=== PATIENT | female | born 1940 | race Caucasian/White ===

== ENCOUNTER 2017-10-22 18:07 | Inpatient (IN) | payer MEDICARE ==
[~2017-10-22] VITALS: Ht 162.6 cm; Wt 73.6 kg
[2017-10-22] MEDS ORDERED: LORAZEPAM INJ 2 MG/ML VIAL ONE (18:13)
[2017-10-22] MEDS ORDERED: LORAZEPAM INJ 2 MG/ML VIAL IV ONE (18:30)
[2017-10-22] MEDS ORDERED: LEVETIRACETAM (500MG) 500 MG in IV NS 0.9% 100 ML IV SCH (18:30)
[2017-10-22 18:38] LABS: BASOPHILS # (AUTO) 0.1 /CMM (0.0-0.2); BASOPHILS % (AUTO) 0.9 % (0.0-2.0); EOSINOPHILS # (AUTO) 0.3 /CMM (0.0-0.7); EOSINOPHILS % (AUTO) 3.1 % (0.0-6.0); HEMATOCRIT 40 % (33-45); HEMOGLOBIN 12.6 g/dL (11.5-14.8); LYMPHOCYTES # (AUTO) 3.6 /CMM (0.8-4.8); LYMPHOCYTES % (AUTO) 42.1 % (20.0-44.0); MEAN CORPUSCULAR HEMOGLOBIN 29 PG (26.0-33.0); MEAN CORPUSCULAR HGB CONC 32 g/dl (31.0-36.0); MEAN CORPUSCULAR VOLUME 89 fL (82-100); MONOCYTES # (AUTO) 0.7 /CMM (0.1-1.30); MONOCYTES % (AUTO) 8.4 % (2.0-12.0); NEUTROPHILS # (AUTO) 3.8 /CMM (1.8-8.9); NEUTROPHILS % (AUTO) 45.5 % (43.0-81.0); PLATELET COUNT (AUTO) 307 /CMM (150-450); RDW COEFFICIENT OF VARIATION 13.3 (11.5-15.0); RED BLOOD CELL COUNT(AUTO) 4.41 MIL/uL (4.0-5.2); WHITE BLOOD COUNT (AUTO) 8.5 K/uL (4.3-11.0)
[2017-10-22 18:54] LABS: INR 1.08 (0.87-1.13); PROTHROMBIN TIME 11.2 SECS (9.5-12.7)
[2017-10-22 18:57] LABS: ALANINE AMINOTRANSFERASE 16 U/L (12-78); ALKALINE PHOSPHATASE 69 U/L (46-116); ASPARTATE AMINOTRANSFERASE 18 U/L (15-37); BILIRUBIN,DIRECT 0.1 mg/dL (0.0-0.2); BILIRUBIN,TOTAL 0.4 mg/dL (0.2-1.0); CALCIUM, SERUM 10.1 mg/dL (8.5-10.1); CHLORIDE 106 mmol/L (98-107); POTASSIUM 3.7 mmol/L (3.5-5.1); SODIUM SERUM 145 mmol/L (136-145); TOTAL PROTEIN, SERUM 7.4 g/dL (6.4-8.2); UREA NITROGEN, BLOOD 13 mg/dL (7-18)
[2017-10-22 18:58] LABS: CARBON DIOXIDE 18 mmol/L (21-32); GLUCOSE 131 mg/dL (74-106)
[2017-10-22] MEDS ORDERED: ASCO250T5 PO (19:15)
[2017-10-22] MEDS ORDERED: FERR-58 PO (19:15)
[2017-10-22] MEDS ORDERED: HYDR-548 PO (19:15)
[2017-10-22] MEDS ORDERED: METO-356 PO (19:15)
[2017-10-22] MEDS ORDERED: SENN-167 PO (19:15)
[2017-10-22] MEDS ORDERED: MELA1TAB9 PO (19:15)
[2017-10-22] MEDS ORDERED: POTA20TA83 PO (19:15)
[2017-10-22] MEDS ORDERED: AMIN30LI2 PO (19:15)
[2017-10-22] MEDS ORDERED: HYDR-552 PO (19:15)
[2017-10-22] MEDS ORDERED: MAGN400O6 PO (19:15)
[2017-10-22] MEDS ORDERED: ACET-868 PO (19:15)
[2017-10-22] MEDS ORDERED: PRAV80TA21 PO (19:15)
[2017-10-22] MEDS ORDERED: DOCU-141 PO (19:15)
[2017-10-22] MEDS ORDERED: QUET25TA PO (19:15)
[2017-10-22] MEDS ORDERED: APIX5TAB PO (19:15)
[2017-10-22] MEDS ORDERED: METH500T PO (19:15)
[2017-10-22] MEDS ORDERED: VILA10TA PO (19:15)
[2017-10-22] MEDS ORDERED: MAGN400T6 PO (19:15)
[2017-10-22] MEDS ORDERED: LIDO700A TP (19:15)
[2017-10-22] MEDS ORDERED: BISA10SU8 RC (19:15)
[2017-10-22] MEDS ORDERED: MULT1TAB73 PO (19:15)
[2017-10-22] MEDS ORDERED: IOHEXOL-350 100 ML VIAL IV ONE (19:29)
[2017-10-22] MEDS ORDERED: IV NS 0.9% 250 ML IV ONE (19:29)
[2017-10-22 20:30] VITALS: BP 132/70
[2017-10-22] MEDS ORDERED: ACETAMINOPHEN 325 MG TABLET PO PRN (20:30)
[2017-10-22] MEDS ORDERED: ONDANSETRON HCL/PF 4 MG/2 ML VIAL IVP PRN (20:30)
[2017-10-22] MEDS ORDERED: LORAZEPAM INJ 2 MG/ML VIAL IV PRN (20:30)
[2017-10-22] MEDS ORDERED: MAGNESIUM HYDROXIDE 30 ML UDC PO PRN (20:30)
[2017-10-22] MEDS ORDERED: BISACODYL SUPP (10 MG) 10 MG/SUPP.RECT SUPP.RECT RC PRN (20:30)
[2017-10-22] MEDS ORDERED: HYDROCODONE/APAP 10/325MG 1 EA TABLET PO PRN (20:30)
[2017-10-22] MEDS ORDERED: MELATONIN 2 MG PO SCH (22:00)
[2017-10-22] MEDS ORDERED: SENNOSIDES 8.6 MG TABLET ONE (22:36)
[2017-10-22] MEDS ORDERED: QUETIAPINE FUMARATE 25 MG TABLET ONE (22:37)
[2017-10-22] MEDS ORDERED: MAGNESIUM OXIDE 400 MG TABLET ONE (22:38)
[2017-10-22] MEDS: QUETIAPINE FUMARATE 25 MG TABLET PO SCH (22:55)
[2017-10-22] MEDS: MAGNESIUM OXIDE 400 MG TABLET PO SCH (22:55)
[2017-10-22] MEDS: SENNOSIDES 8.6 MG TABLET PO SCH (22:56)
[2017-10-22] MEDS: IV 1/2NS 1000 ML 1,000 ML IV PRN (23:00)
[2017-10-23] VITALS: BP 115/59
[2017-10-23 04:00] VITALS: BP 121/61
[2017-10-23] MEDS ORDERED: HYDROCODONE/APAP 10/325MG 1 EA TABLET ONE (04:58)
[2017-10-23 07:20] LABS: BASOPHILS # (AUTO) 0.1 /CMM (0.0-0.2); BASOPHILS % (AUTO) 0.9 % (0.0-2.0); EOSINOPHILS # (AUTO) 0.1 /CMM (0.0-0.7); EOSINOPHILS % (AUTO) 2.1 % (0.0-6.0); HEMATOCRIT 35 % (33-45); HEMOGLOBIN 11.6 g/dL (11.5-14.8); LYMPHOCYTES # (AUTO) 1.4 /CMM (0.8-4.8); LYMPHOCYTES % (AUTO) 23.7 % (20.0-44.0); MEAN CORPUSCULAR HEMOGLOBIN 30 PG (26.0-33.0); MEAN CORPUSCULAR HGB CONC 33 g/dl (31.0-36.0); MEAN CORPUSCULAR VOLUME 89 fL (82-100); MONOCYTES # (AUTO) 0.5 /CMM (0.1-1.30); MONOCYTES % (AUTO) 8.6 % (2.0-12.0); NEUTROPHILS # (AUTO) 3.9 /CMM (1.8-8.9); NEUTROPHILS % (AUTO) 64.7 % (43.0-81.0); PLATELET COUNT (AUTO) 226 /CMM (150-450); RDW COEFFICIENT OF VARIATION 14.3 (11.5-15.0); RED BLOOD CELL COUNT(AUTO) 3.94 MIL/uL (4.0-5.2)
[2017-10-23 07:42] LABS: ALANINE AMINOTRANSFERASE 18 U/L (12-78); ALBUMIN 3.4 g/dL (3.4-5.0); ALKALINE PHOSPHATASE 61 U/L (46-116); ASPARTATE AMINOTRANSFERASE 16 U/L (15-37); B-TYPE NATRIURETIC PEPTIDE 157 PG/ML (0-125); BILIRUBIN,TOTAL 0.4 mg/dL (0.2-1.0); CALCIUM, SERUM 9.7 mg/dL (8.5-10.1); CARBON DIOXIDE 27 mmol/L (21-32); CHLORIDE 108 mmol/L (98-107); CREATININE 0.8 mg/dL (0.6-1.3); GLUCOSE 95 mg/dL (74-106); MAGNESIUM 1.8 mg/dL (1.8-2.4); PHOSPHORUS 3.6 mg/dL (2.5-4.9); POTASSIUM 3.3 mmol/L (3.5-5.1); SODIUM SERUM 144 mmol/L (136-145); TOTAL PROTEIN, SERUM 6.4 g/dL (6.4-8.2); UREA NITROGEN, BLOOD 10 mg/dL (7-18)
[2017-10-23 07:47] LABS: CHOLESTEROL 150 mg/dL (<200); HDL CHOLESTEROL 64 mg/dL (40-60); LDL 76 mg/dL (0-99); THYROID STIMULATING HORMONE 3.731 uIU/mL (0.358-3.74); TRIGLYCERIDES 76 mg/dL (30-150)
[2017-10-23 08:00] VITALS: BP_SYST 125; BP_SYST 132; BP_DIAS 52
[2017-10-23] MEDS: POTASSIUM CHLORIDE 20 MEQ TAB.PRT.SR PO SCH (08:54)
[2017-10-23] MEDS: ASCORBIC ACID 500 MG TABLET PO SCH ×2 (08:54→17:06)
[2017-10-23] MEDS: MULTIVITAMINS,THERAGRAN 1 UDTAB TABLET PO SCH (08:54)
[2017-10-23] MEDS: PANTOPRAZOLE 40 MG TABLET.DR PO SCH (08:54)
[2017-10-23] MEDS: METOPROLOL SUCCINATE 25 MG TAB.SR.24H PO SCH (08:55)
[2017-10-23] MEDS: METHOCARBAMOL (500MG) 500 MG TABLET PO SCH ×3 (08:55→17:09)
[2017-10-23] MEDS: DOCUSATE SODIUM 100 MG CAPSULE PO SCH ×2 (08:55→17:09)
[2017-10-23] MEDS: LEVETIRACETAM (500MG) 500 MG in IV NS 0.9% 100 ML IV SCH ×2 (08:56→21:24)
[2017-10-23] MEDS: LIDOCAINE 5% (PATCH) 1 EA PATCH TP SCH (08:56)
[2017-10-23] MEDS ORDERED: PROSTAT (PYXIS) 30 ML UDC PO SCH (09:00)
[2017-10-23] MEDS: PROSOURCE / PROSTAT (PYXIS) 30 ML UDC PO SCH (09:00)
[2017-10-23 12:00] VITALS: BP 130/70
[2017-10-23 16:00] VITALS: BP 142/80
[2017-10-23] MEDS ORDERED: APIXABAN 5 MG TABLET PO ONE (16:00)
[2017-10-23] MEDS: IV 1/2NS 1000 ML 1,000 ML IV PRN (17:10)
[2017-10-23 20:00] VITALS: BP 147/64
[2017-10-23 20:19] LABS: APPEARANCE,URINE CLEAR (CLEAR); BILIRUBIN,URINE NEGATIVE (NEGATIVE); BLOOD, URINE TRACE Ery/uL (NEGATIVE); COLOR,URINE YELLOW (YELLOW); KETONES,URINE NEGATIVE (NEGATIVE); LEUKOCYTE ESTERASE ,URINE NEGATIVE (NEGATIVE); NITRITE, URINE NEGATIVE (NEGATIVE); PROTEIN,URINE NEGATIVE (NEGATIVE); UGLUCOSE NEGATIVE (NEGATIVE); UROBILINOGEN,URINE 0.2 EU/dL (0.2)
[2017-10-23 20:38] LABS: SQUAMOUS EPITHELIAL CELL,UR Rare /HPF (None Seen); WBC,URINE NONE SEEN /HPF (0-3)
[2017-10-23 20:40] LABS: BACTERIA,URINE Rare /HPF (None Seen)
[2017-10-23] MEDS: VILAZODONE HYDROCHLORIDE 10 MG PO SCH (20:50)
[2017-10-23] MEDS: SENNOSIDES 8.6 MG TABLET PO SCH (21:47)
[2017-10-23] MEDS: MAGNESIUM OXIDE 400 MG TABLET PO SCH (21:47)
[2017-10-23] MEDS: QUETIAPINE FUMARATE 25 MG TABLET PO SCH (21:48)
[2017-10-23] MEDS ORDERED: ATORVASTATIN 40 MG TABLET PO SCH (22:00)
[2017-10-24] VITALS: BP 139/74
[2017-10-24 04:00] VITALS: BP 137/65
[2017-10-24 08:00] VITALS: BP 128/66
[2017-10-24 08:36] LABS: BASOPHILS % (AUTO) 0.7 % (0.0-2.0); EOSINOPHILS # (AUTO) 0.1 /CMM (0.0-0.7); EOSINOPHILS % (AUTO) 1.5 % (0.0-6.0); HEMATOCRIT 36 % (33-45); LYMPHOCYTES # (AUTO) 1.2 /CMM (0.8-4.8); LYMPHOCYTES % (AUTO) 23.3 % (20.0-44.0); MEAN CORPUSCULAR HEMOGLOBIN 30 PG (26.0-33.0); MEAN CORPUSCULAR HGB CONC 34 g/dl (31.0-36.0); MEAN CORPUSCULAR VOLUME 89 fL (82-100); MONOCYTES # (AUTO) 0.3 /CMM (0.1-1.30); MONOCYTES % (AUTO) 6.3 % (2.0-12.0); NEUTROPHILS # (AUTO) 3.6 /CMM (1.8-8.9); NEUTROPHILS % (AUTO) 68.2 % (43.0-81.0); PLATELET COUNT (AUTO) 246 /CMM (150-450); RDW COEFFICIENT OF VARIATION 14.7 (11.5-15.0); RED BLOOD CELL COUNT(AUTO) 4.03 MIL/uL (4.0-5.2); WHITE BLOOD COUNT (AUTO) 5.2 K/uL (4.3-11.0)
[2017-10-24 08:55] LABS: CALCIUM, SERUM 9.9 mg/dL (8.5-10.1); CARBON DIOXIDE 28 mmol/L (21-32); CHLORIDE 105 mmol/L (98-107); CREATININE 0.7 mg/dL (0.6-1.3); GLUCOSE 99 mg/dL (74-106); POTASSIUM 3.4 mmol/L (3.5-5.1); SODIUM SERUM 142 mmol/L (136-145); UREA NITROGEN, BLOOD 7 mg/dL (7-18)
[2017-10-24] MEDS ORDERED: APIXABAN 5 MG TABLET PO SCH (09:00)
[2017-10-24] MEDS ORDERED: LEVETIRACETAM (250 MG) 250 MG TABLET PO SCH (09:00)
[2017-10-24] MEDS: PROSOURCE / PROSTAT (PYXIS) 30 ML UDC PO SCH (09:00)
[2017-10-24] MEDS: VILAZODONE HYDROCHLORIDE 10 MG PO SCH (09:05)
[2017-10-24] MEDS: METHOCARBAMOL (500MG) 500 MG TABLET PO SCH ×2 (09:06→13:42)
[2017-10-24] MEDS: POTASSIUM CHLORIDE 20 MEQ TAB.PRT.SR PO SCH (09:06)
[2017-10-24] MEDS: MULTIVITAMINS,THERAGRAN 1 UDTAB TABLET PO SCH (09:06)
[2017-10-24] MEDS: DOCUSATE SODIUM 100 MG CAPSULE PO SCH (09:06)
[2017-10-24] MEDS: ASCORBIC ACID 500 MG TABLET PO SCH (09:07)
[2017-10-24] MEDS: PANTOPRAZOLE 40 MG TABLET.DR PO SCH (09:08)
[2017-10-24] MEDS: METOPROLOL SUCCINATE 25 MG TAB.SR.24H PO SCH (09:12)
[2017-10-24] MEDS: LIDOCAINE 5% (PATCH) 1 EA PATCH TP SCH (09:13)
[2017-10-24] MEDS ORDERED: POTASSIUM CHLORIDE 20 MEQ TAB.PRT.SR PO ONE (09:45)
[2017-10-24 16:00] VITALS: BP 130/76
== END 2017-10-24 16:47 | DRG 101 ==
LOC: ER 18:09 → TELE 19:52 → MED 10-23 09:08 → TELE 10-23 09:09 → MED 10-24 09:30
PROVIDERS: ADMIT Nurse Practitioner Acute Care; ATTEND Internal Medicine
DX: R56.9 Unspecified convulsions (principal); D68.59 Other primary thrombophilia; I48.91 Unspecified atrial fibrillation; I69.854 Hemiplegia and hemiparesis following other cerebrovascular disease affecting left non-dominant side; F03.90 Unspecified dementia, unspecified severity, without behavioral disturbance, psychotic disturbance, mood disturbance, and anxiety; E78.5 Hyperlipidemia, unspecified; Z79.01 Long term (current) use of anticoagulants; Z85.820 Personal history of malignant melanoma of skin; E03.9 Hypothyroidism, unspecified; E87.6 Hypokalemia; I10 Essential (primary) hypertension; F32.9 Major depressive disorder, single episode, unspecified; E66.9 Obesity, unspecified; Z68.27 Body mass index [BMI] 27.0-27.9, adult; Z98.2 Presence of cerebrospinal fluid drainage device; R73.9 Hyperglycemia, unspecified; Z96.651 Presence of right artificial knee joint
CPT/HCPCS: 36415; 70450-TC; 71010-TC; 80048-TC; 80053-TC; 80061-TC; 80076-TC; 81000-TC; 82962-TC; 83735-TC; 83880; 84100-TC; 84443-TC; 84484-TC; 85025-TC; 85730-TC; 87081-TC; 87086-TC; 93307-TC; 97110-TC; 97116-TC; 97530-TC; J1953; J2060; J2405; J3490; J7030; J7050; Q9967; Z7610